=== PATIENT | male | born 1960 | race Two or more races ===

== ENCOUNTER 2018-08-10 19:07 | Emergency (ER) | payer SELFPAY ==
--- NOTE | 2018-08-10 19:37 | ED Physician Chart ---
ED Chief Complaint/HPI - Patient Information Date Seen:: 08/10/18 Time Seen:: 19:32 Chief Complaint:: etoh fall History of Present Illness:: 58 yr old male with etoh abuse who was in the bar and was drinking heavily and fell backwards on his head with open scalp wound Allergies:: Allergies Allergy/AdvReac Type Severity Reaction Status Date / Time UNOBTN - Unobtainable Allergy Verified 08/10/18 19:19 Vitals:: Vital Signs - 8 hr 08/10/18 19:20 Temp 97.8 F HR 69 RR 15 BP 121/72 O2 Sat % 93 ED Review of Systems - Review of Systems General/Constitutional: No fever, No chills, No weight loss, No weakness, No diaphoresis, No edema, No loss of appetite Skin: No skin lesions, No rash, No bruising Head: Other (scalp laceration) Eyes: No loss of vision, No pain, No diplopia ENT: No earache, No nasal drainage, No sore throat, No tinnitus Neck: No neck pain, No swelling, No thyromegaly, No stiffness, No mass noted Cardio Vascular: No chest pain, No palpitations, No PND, No orthopnea, No edema Pulmonary: No SOB, No cough, No sputum, No wheezing GI: No nausea, No vomiting, No diarrhea, No pain, No melena, No hematochezia, No constipation, No hematemesis G/U: No dysuria, No frequency, No hematuria Musculoskeletal: No bone or joint pain, No back pain, No muscle pain Endocrine: No polyuria, No polydipsia Hematopoietic: No lymphadenopathy, Other (lt posterior scalp laceration) Allergic/Immuno: No urticaria, No angioedema Neurological: No seizure, No dizziness ED Physical Exam - Physical Examination Other Gen/Cons comments:: confused etoh Other Head comments:: scalp laceration Neck: Nontender Respiratory: Clear to Auscultation Cardio Vascular: No murmur, gallop, rubs GI: No tenderness/rebounding/guarding : No CVA tenderness ED Assessment - Assessment General Assessment: eto abuse in a bar with fall scalp laceration ED Septic Shock - . Is Septic Shock (SBP<90, OR Lactate>4 mmol\L) present?: No - <6hrs of presentation: Vital Signs: Vital Signs - 8 hr 08/10/18 19:20 Temp 97.8 F HR 69 RR 15 BP 121/72 O2 Sat % 93 ED Reassessment (Disposition) - Diagnosis Diagnosis:: eioh fall scalp laceration - Patient Disposition Condition at Disposition:: Stable
[2018-08-10 21:13] LABS: AMPHETAMINE URINE NEGATIVE (NEGATIVE); BARBITURATES URINE NEGATIVE (NEGATIVE); BENZODIAZEPINES QUAL URINE NEGATIVE (NEGATIVE); CANNABINOID THC NEGATIVE (NEGATIVE); COCAINE METABOLITE QUAL URINE NEGATIVE (NEGATIVE); METHADONE URINE NEGATIVE (NEGATIVE); METHAMPHETAMINES QUAL URINE NEGATIVE (NEGATIVE); OPIATES (MORPHINE) QUAL. URINE POSITIVE (NEGATIVE); PHENCYCLIDINE (PCP) URINE NEGATIVE (NEGATIVE); TRICYCLICS (TCA) QUAL. URINE NEGATIVE (NEGATIVE)
[2018-08-10 21:41] LABS: URINE SOURCE CLEAN C
[2018-08-10 21:43] LABS: URINE BILIRUBIN NEGATIVE (NEGATIVE); URINE BLOOD NEGATIVE (NEGATIVE); URINE GLUCOSE (UA) NEGATIVE (NEGATIVE); URINE KETONE NEGATIVE (NEGATIVE); URINE LEUKOCYTE ESTERASE NEGATIVE (NEGATIVE); URINE NITRATE NEGATIVE (NEGATIVE); URINE PH 5.5 (4.6 - 8.0); URINE PROTEIN NEGATIVE (NEGATIVE); URINE UROBILINOGEN 0.2 E.U./dL (0.2 - 1.0)
[2018-08-10 21:45] LABS: URINE COLOR YELLOW
[2018-08-10 21:46] LABS: URINE CLARITY CLEAR (CLEAR); URINE MICROSCOPIC INDICATED? YES
[2018-08-10 21:51] LABS: URINE BACTERIA FEW /hpf (NONE SEEN); URINE EPITHELIAL CELLS FEW /lpf (FEW); URINE RBC 0-2 /hpf (0-5); URINE WBC 0-2 /hpf (0-5)
[2018-08-11 00:45] LABS: % BASOPHILS 0.9 % (0.0-2.0); % EOSINOPHILS 2.3 % (0.0-5.0); % LYMPHOCYTES 37.6 % (20.0-50.0); % MONOCYTES 7.8 % (2.0-10.0); % NEUTROPHILS 51.4 % (40.0-80.0); BASOPHILE ABSOLUTE 0.1 Th/cumm (0-0.2); EOSINOPHILE ABSOLUTE 0.2 Th/cmm (0.1-0.4); HEMATOCRIT 49.6 % (41.0-60); HEMOGLOBIN 16.2 gm/dL (12-16); LYMPHOCYTE ABSOLUTE 3.1 Th/cmm (1.5-3.0); MEAN CELL VOLUME 93.4 fl (80-99); MEAN CORPUSCULAR HEMOGLOBIN 30.6 pg (26.0-30.0); MEAN CORPUSCULAR HGB CONC 32.8 pg (28.0-36.0); MEAN PLATELET VOLUME 7.7 fl; MONOCYTE ABSOLUTE 0.6 Th/cmm (0.3-1.0); NEUTROPHILE ABSOLUTE 4.2 Th/cmm (1.8-8.0); PLATELET COUNT 280 Th/cmm (150-400); RED BLOOD COUNT 5.31 Mil/cmm (4.30-5.70); WHITE BLOOD COUNT 8.2 Th/cmm (4.8-10.8)
[2018-08-11 00:54] LABS: ALB/GLOB RATIO 1.1 (1.0-1.8); ALBUMIN 3.8 gm/dL (4.2-5.5); ALKALINE PHOSPHATASE 58 U/L (34-104); ANION GAP 15.1 (7.0-16.0); BILIRUBIN,TOTAL 0.3 mg/dL (0.3-1.0); BUN - UREA NITROGEN 10 mg/dL (7-25); CALCIUM SERUM 8.9 mg/dL (8.6-10.3); CHLORIDE 109 mEq/L (98-107); CREATININE - SERUM 0.6 mg/dL (0.7-1.3); GFR AFRICAN-AMERICAN > 60.0 ml/min (>90); GFR NON AFRICAN-AMERICAN > 60.0 ml/min; GLUCOSE 107 mg/dL (70-105); POTASSIUM SERUM 4.1 mEq/L (3.5-5.1); SGOT 124 U/L (13-39); SGPT/ALT 162 U/L (7-52); SODIUM SERUM 140 mEq/L (136-145); TOTAL PROTEIN,SERUM 7.3 gm/dL (6.0-8.3)
[2018-08-11] MEDS ORDERED: [UNRECOGNIZED DRUG - OTHER] IM ONE (03:58)
--- NOTE | 2018-08-11 10:35 | Diagnostic Imaging Report ---
CT scan of the brain without intravenous contrast HISTORY: Status post fall Total DLP equals 554 CTDI equals 34.8 Axial sections were obtained from the base of the skull to the vertex. There is prominence/enlargement of the ventricular system size. Associated enlargement of cerebral sulci and subarachnoid cisterns. Findings are consistent with changes of generalized cerebral atrophy. No acute parenchymal abnormalities. No acute cerebral hemorrhage. Hypodensity is seen within the supratentorial white matter regions without mass effect. The findings may be associated with chronic small vessel ischemic disease. No extra-axial masses or abnormal fluid collections. Small amount of soft tissue swelling in left occipital area appreciated IMPRESSION: 1. No acute abnormalities 2. Cerebral atrophy 3. Supratentorial white matter changes that may reflect chronic small vessel ischemic disease
== END 2018-08-11 04:36 | disposition home or self-care (01) ==
LOC: ER 19:07
DX: S01.01XA Laceration without foreign body of scalp, initial encounter (principal); F10.10 Alcohol abuse, uncomplicated; W18.39XA Other fall on same level, initial encounter; Y93.89 Activity, other specified; Y92.89 Other specified places as the place of occurrence of the external cause; Y99.8 Other external cause status
CPT/HCPCS: 36415-UA; 70450-TC; 80053-TC; 80307; 81001-TC; 85025-TC; J7030; Z7502